=== PATIENT | female | born 1940 | race Hispanic/Latino ===

== ENCOUNTER 2020-11-12 09:05 | Emergency (ER) | payer MEDICARE, OTHER ==
[2020-11-12 09:58] LABS: #Eosinphils 0.2 10x3/uL (0.0-0.5); #Monocytes 0.6 10x3/uL (0.0-1.1); #Neutrophils 3.6 10x3/uL (1.5-8.4); %Basophils 0.3 % (0.0-2.0); %Eosinophils 3.7 % (0.0-6.0); %Lymphocytes 31.5 % (18.0-47.0); %Monocytes 9.3 % (0.0-10.0); %Neutrophils 54.9 % (40.0-75.0); Hemoglobin 13.8 g/dL (12.0-15.5); Mean Corpuscular HGB CONC 33.3 g/dL (32.0-36.0); Mean Corpuscular Hemoglobin 33.5 pg (27.0-33.0); Mean Corpuscular Volume 100.5 fl (81.6-98.3); Mean Platelet Volume 9.5 fl (7.4-10.4); Platelet Count 258 10x3/uL (150-450); RBC Distribution Width 12.9 % (11.5-14.5); Red Blood Cell (RBC) Count 4.12 10x6/uL (3.90-5.03); White Blood Cell (WBC) Count 6.6 10x3/uL (3.5-10.5)
[2020-11-12 10:14] LABS: ALT (SGPT) 39 U/L (8-55); AST (SGOT) 35 U/L (5-34); Alkaline Phosphatase 80 U/L (40-110); Anion Gap 14 mmol/L (10-20); BUN (Urea Nitrogen) 12 mg/dL (9.8-20.1); Bilirubin, Total 0.4 mg/dL (0.2-1.2); Calc. Creatinine Clearance 0 mL/min (70-130); Calcium 9.1 mg/dL (7.8-10.44); Carbon Dioxide 23 mmol/L (23-31); Chloride 104 mmol/L (98-107); Globulin 4.1 g/dL (2.4-3.5); Glucose 114 mg/dL (83-110); Potassium 4.2 mmol/L (3.5-5.1); Protein, Total 8.1 g/dL (5.8-8.1); Sodium 137 mmol/L (136-145)
[2020-11-12 22:35] LABS: SARS-CoV-2 PCR by NAA Not Detected (NotDetected)
== END 2020-11-12 11:30 | disposition home or self-care (01) ==
LOC: CSHERS 09:05
DX: J18.9 Pneumonia, unspecified organism (principal); I10 Essential (primary) hypertension; E03.9 Hypothyroidism, unspecified
CPT/HCPCS: 71045; 80053; 85025; 94760; 99284; U0003; U0005; 36415; 87635

== ENCOUNTER 2021-07-07 18:07 | Emergency (ER) | payer MEDICARE, OTHER ==
[2021-07-07 19:49] LABS: SARS-CoV-2 NAA Rapid Test Not Detected (NotDetected)
== END 2021-07-07 21:14 | disposition home or self-care (01) ==
LOC: CSHERS 18:07
DX: J18.9 Pneumonia, unspecified organism (principal); E03.9 Hypothyroidism, unspecified; G62.9 Polyneuropathy, unspecified; Z20.822 Contact with and (suspected) exposure to COVID-19
CPT/HCPCS: 71046; 99283; U0002